=== PATIENT | male | born 1990 | race Caucasian/White ===

== ENCOUNTER 2020-04-01 12:15 | Emergency (ER) | payer OTHER, BC ==
--- NOTE | 2020-04-01 12:47 | EDM.PDOC ---
ED HPI GENERAL MEDICAL PROBLEM - General Chief Complaint: Laceration Stated Complaint: FINGER LACERATION Time Seen by Provider: 04/01/20 12:46 Source of Information: Reports: Patient, RN, RN Notes Reviewed History Limitations: Reports: No Limitations - History of Present Illness INITIAL COMMENTS - FREE TEXT/NARRATIVE: Pt presents to ER with c/o a cut/puncture wound to the left middle finger at work today. Pt states he almost passed out from anxiety because of the injury. Denies any other injury. Tetanus vaccine is up to date per pt. Onset: Today, Sudden Duration: Constant Location: Reports: Upper Extremity, Left Quality: Reports: Ache Severity: Mild Improves with: Reports: None Worsens with: Reports: None Associated Symptoms: Reports: No Other Symptoms - Related Data Allergies Allergy/AdvReac Type Severity Reaction Status Date / Time No Known Allergies Allergy Verified 04/01/20 12:47 Home Meds: Home Meds . [No Known Home Meds] 08/26/14 [History] Past Medical History - Past Health History Medical/Surgical History: Denies Medical/Surgical History Social & Family History - Family History Family Medical History: Noncontributory - Living Situation & Occupation Occupation: Employed Review of Systems - Review of Systems Review Of Systems: Comprehensive ROS is negative, except as noted in HPI. ED EXAM, GENERAL - Physical Exam Exam: See Below Exam Limited By: No Limitations General Appearance: Alert, WD/WN, No Apparent Distress, Anxious Respiratory/Chest: No Respiratory Distress Cardiovascular: Normal Peripheral Pulses Extremities: Normal Capillary Refill, Other (palmar base of left 3rd finger has a tiny puncture wound, no active bleeding, no visible FB, full ROM) Neurological: Alert, Oriented, No Motor/Sensory Deficits Psychiatric: Anxious Skin Exam: Warm, Dry Course - Vital Signs Last Recorded V/S: Last Vital Signs Temp 98.3 F 04/01/20 12:52 Pulse 64 04/01/20 12:52 Resp 16 04/01/20 12:52 BP Pulse Ox 100 04/01/20 12:52 - Orders/Labs/Meds Meds: Medications Discontinued Medications Generic Name Dose Route Start Last Admin Trade Name Freq PRN Reason Stop Dose Admin Bacitracin 1 dose 04/01/20 12:54 Bacitracin Oint 1 Gm TOP 04/01/20 12:55 ONETIME ONE - Radiology Interpretation Free Text/Narrative:: [facility] Final Radiology Report Call: [phone] assistance Online chat: [email or web address] Name: SHANICE JESUS Age: 29Years M Date: 04/01/2020 SSN: -- : [id number] Study: CR FINGERS THIRD DIGIT LT Requesting Physician: IRENE TRAN Images: 3 Addl Studies: Provided Clinical History: puncture wound base of left 3rd finger Contrast: Contrast Medium: Contrast Amount: Contrast Method: CONFIDENTIALITY STATEMENT This report is intended only for use by the referring physician, and only in accordance with law. If you received this in error, call [phone]. Page 1 of 1 PROCEDURE INFORMATION: Exam: XR Left Finger(s) Exam date and time: 04/01/2020 1:00 PM Age: 29 years old Clinical indication: Injury or trauma; Work related; Initial encounter; Wound; Left; Middle finger; Injury date: Today; Additional info: Puncture wound base of left 3rd finger TECHNIQUE: Imaging protocol: XR Left fingers. Views: Minimum 2 views. COMPARISON: No relevant prior studies available. FINDINGS: Bones/joints: No fracture. No dislocation. Soft tissues: No radiopaque foreign body. IMPRESSION: No acute osseous abnormality. Thank you for allowing us to participate in the care of your patient. Dictated and Authenticated by: Jg Raymond MD 04/01/2020 1:23 PM Central Time ([place] & [place]) Departure - Departure Time of Disposition: 13:23 Disposition: Home, Self-Care 01 Condition: Good Clinical Impression: Puncture wound - injury - Discharge Information *PRESCRIPTION DRUG MONITORING PROGRAM REVIEWED*: Not Applicable *COPY OF PRESCRIPTION DRUG MONITORING REPORT IN PATIENT LATISHA: Not Applicable Instructions: Puncture Wound, [id number] Forms: ED Department Discharge Additional Instructions: Keep left middle finger/hand wound clean. May shower, but do not soak in bath, hot tub, pool, chiu, etc. Apply a thin layer of over the counter Bacitracin Ointment to the injury twice a day for 4 to 5 days. Follow up in clinic if any signs of infection develop, such as redness or pus drainage. Sepsis Event Note (ED) - Focused Exam Vital Signs: Vital Signs Temp Pulse Resp Pulse Ox 04/01/20 12:52 98.3 F 64 16 100
[2020-04-01 12:53] VITALS: PULSE 64
[2020-04-01] MEDS ORDERED: Bacitracin Oint 1 GM U/D Packet TOP ONE (12:54)
--- NOTE | 2020-04-01 13:23 | CR ---
PROCEDURE INFORMATION: Exam: XR Left Finger(s) Exam date and time: 04/01/2020 1:00 PM Age: 29 years old Clinical indication: Injury or trauma; Work related; Initial encounter; Wound; Left; Middle finger; Injury date: Today; Additional info: Puncture wound base of left 3rd finger TECHNIQUE: Imaging protocol: XR Left fingers. Views: Minimum 2 views. COMPARISON: No relevant prior studies available. FINDINGS: Bones/joints: No fracture. No dislocation. Soft tissues: No radiopaque foreign body. IMPRESSION: No acute osseous abnormality.
== END 2020-04-01 13:36 | disposition home or self-care (01) ==
LOC: DL.ED 12:15
DX: S61.233A Puncture wound without foreign body of left middle finger without damage to nail, initial encounter (principal); X58.XXXA Exposure to other specified factors, initial encounter; Y99.0 Civilian activity done for income or pay
CPT/HCPCS: 73140-F2; 99283-25